=== PATIENT | male | born 2000 | race Caucasian/White ===

== ENCOUNTER 2024-08-30 00:46 | Inpatient (IN) | payer OTHER ==
[~2024-08-30] VITALS: Ht 175.3 cm; Wt 65.4 kg
[2024-08-30 02:04] LABS: HEMATOCRIT 46.4 % (42.0-52.0); HEMOGLOBIN 15.9 g/dl (13.5-17.5); MEAN CORPUSCULAR HEMOGLOBIN 29.8 pg (27.0-33.0); MEAN CORPUSCULAR HGB CONC 34.3 g/dl (32.0-36.5); MEAN CORPUSCULAR VOLUME 86.9 fl (80.0-96.0); PLATELET COUNT, AUTOMATED 290 10^3/uL (150-450); RED BLOOD COUNT 5.34 10^6/uL (4.30-6.10); WHITE BLOOD COUNT 7.9 10^3/uL (4.0-10.0)
[2024-08-30 02:24] LABS: AMPHETAMINES LEVEL URINE NEGATIVE (NEGATIVE); BARBITURATES URINE NEGATIVE (NEGATIVE); BENZODIAZEPINES URINE NEGATIVE (NEGATIVE); CANNABINOIDS URINE NEGATIVE (NEGATIVE); COCAINE METABOLITE URINE NEGATIVE (NEGATIVE); METHADONE URINE NEGATIVE (NEGATIVE); OPIATES URINE NEGATIVE (NEGATIVE); PHENCYCLIDINE URINE NEGATIVE (NEGATIVE)
[2024-08-30 02:26] LABS: ETHYL ALCOHOL (ETHANOL) 0.165 % (0.000-0.010)
[2024-08-30 02:28] LABS: ALBUMIN 4.3 G/DL (3.2-5.2); ALKALINE PHOSPHATASE 110 U/L (40-129); ALT/SGPT 37 U/L (7.0-40); AST/SGOT 41 U/L (<34); BILIRUBIN,DIRECT 0.2 MG/DL (<0.4); BILIRUBIN,TOTAL 0.6 MG/DL (0.3-1.2); BLOOD UREA NITROGEN 12 MG/DL (9-23); CALCIUM LEVEL 9.4 MG/DL (8.5-10.1); CARBON DIOXIDE LEVEL 24 MMOL/L (20-31); CHLORIDE LEVEL 105 MMOL/L (98-107); CREATININE FOR GFR 0.84 MG/DL (0.70-1.30); GLOMERULAR FILTRATION RATE > 90.0 (>60); GLUCOSE, FASTING 94 MG/DL (60-100); POTASSIUM SERUM 4.1 MMOL/L (3.5-5.1); SALICYLATE LEVEL < 3.0 MG/DL (<30); SODIUM LEVEL 142 MMOL/L (136-145)
[2024-08-30 02:29] LABS: THYROID STIMULATING HORMONE 0.603 uIU/ML (0.55-4.78)
[2024-08-30] MEDS ORDERED: HOME MED LIST COMPLETE! XX SCH (10:40)
[2024-08-30 14:35] VITALS: BP 125/73; TEMP 98.3; O2SAT 99
[2024-08-30] MEDS ORDERED: traZODone 50 MG TAB PO PRN (15:05)
[2024-08-30] MEDS ORDERED: LORazepam 2 MG TAB PO PRN (15:05)
[2024-08-30] MEDS ORDERED: diphenhydrAMINE 25MG CAP PO PRN (15:05)
[2024-08-30] MEDS ORDERED: MAALOX 30 ML SUSP *UDC PO PRN (15:05)
[2024-08-30] MEDS ORDERED: OLANZapine ORAL DISINTEGRATING TAB 5MG PO PRN (15:05)
[2024-08-30] MEDS ORDERED: MOM 30ML SUSPENSION UDC PO PRN (15:05)
[2024-08-30] MEDS ORDERED: ACETAMINOPHEN 325 MG TAB PO PRN (15:05)
[2024-08-30] MEDS ORDERED: IBUPROFEN 400MG TAB PO PRN (15:05)
[2024-08-30 15:30] VITALS: BP 125/73
[2024-08-30] MEDS: FOLIC ACID 1MG TAB PO SCH (15:35)
[2024-08-30] MEDS: MULTIVITAMINS/MINERALS THERAP 1 TAB PO SCH (15:35)
[2024-08-30] MEDS: THIAMINE 100 MG TAB PO SCH (15:35)
[2024-08-31 08:00] VITALS: BP 121/70
[2024-08-31] MEDS: ESCITALOPRAM OXALATE 5MG TABLET (LEXAPRO) PO SCH (15:05)
[2024-08-31 16:00] VITALS: BP 130/69; TEMP 97.9; O2SAT 99
[2024-09-01 06:30] VITALS: BP 117/69; TEMP 97.6; O2SAT 99
[2024-09-01 08:56] VITALS: BP 110/71
[2024-09-01] MEDS ORDERED: LEXA5TAB13 PO (10:30)
== END 2024-09-01 12:00 | DRG 880 ==
LOC: M ED 00:46 → M ED INP 11:35 → M PSY 14:08
PROVIDERS: ADMIT Psychiatry & Neurology Psychiatry; ATTEND Psychiatry & Neurology Psychiatry
DX: F41.9 Anxiety disorder, unspecified (principal); R45.851 Suicidal ideations; F10.20 Alcohol dependence, uncomplicated

== ENCOUNTER 2025-04-03 00:35 | Emergency (ER) | payer OTHER ==
[~2025-04-03] VITALS: Ht 167.6 cm; Wt 68.6 kg
[~2025-04-03 00:35] MED LIST: LEXA5TAB13 PO
[2025-04-03] MEDS ORDERED: MIDAZOLAM INJ 2 MG/2 ML VIAL IV ONE (00:55)
[2025-04-03] MEDS: NS (Normal Saline) 0.9% 1,000 ML IV ONE (00:58)
[2025-04-03] MEDS: MIDAZOLAM INJ 2 MG/2 ML VIAL IV STA (00:59)
[2025-04-03] MEDS: ONDANSETRON 4MG/2ML VIAL IV ONE (00:59)
[2025-04-03 01:09] LABS: PLATELET COUNT, AUTOMATED 251 10^3/uL (150-450)
[2025-04-03 01:41] LABS: ALT/SGPT 33 U/L (7.0-40); AST/SGOT 39 U/L (<34); CALCIUM LEVEL 8.7 MG/DL (8.5-10.1); CARBON DIOXIDE LEVEL 26 MMOL/L (20-31); CHLORIDE LEVEL 104 MMOL/L (98-107); CREATININE FOR GFR 0.97 MG/DL (0.70-1.30); GLOMERULAR FILTRATION RATE > 90.0 (>60); POTASSIUM SERUM 3.5 MMOL/L (3.5-5.1); SALICYLATE LEVEL < 3.0 MG/DL (<30); SODIUM LEVEL 142 MMOL/L (136-145)
[2025-04-03 02:01] LABS: ETHYL ALCOHOL (ETHANOL) 0.366 % (0.000-0.010)
[2025-04-03 06:24] LABS: AMPHETAMINES LEVEL URINE NEGATIVE (NEGATIVE); BARBITURATES URINE NEGATIVE (NEGATIVE)
[2025-04-03 06:25] LABS: CANNABINOIDS URINE NEGATIVE (NEGATIVE); COCAINE METABOLITE URINE NEGATIVE (NEGATIVE); METHADONE URINE NEGATIVE (NEGATIVE); OPIATES URINE NEGATIVE (NEGATIVE); PHENCYCLIDINE URINE NEGATIVE (NEGATIVE)
[2025-04-03 06:27] LABS: BENZODIAZEPINES URINE POSITIVE (NEGATIVE)
[2025-04-03 10:34] VITALS: BP 117/72; TEMP 97; O2SAT 98
== END 2025-04-03 10:51 | disposition home or self-care (01) ==
LOC: EDBD 00:35 → M ED 00:35
DX: S02.2XXA Fracture of nasal bones, initial encounter for closed fracture (principal); Y04.0XXA Assault by unarmed brawl or fight, initial encounter; Y92.410 Unspecified street and highway as the place of occurrence of the external cause; Y93.89 Activity, other specified; Y99.9 Unspecified external cause status; F10.129 Alcohol abuse with intoxication, unspecified; Y90.8 Blood alcohol level of 240 mg/100 ml or more; F32.A Depression, unspecified
CPT/HCPCS: 70450; 70486; 72125; 72128; 80047; 80048; 80076; 80143; 80307; 82077; 84443; 85027; 96374; 96375; 99285; J2250; J2405